=== PATIENT | male | born 1975 | race Caucasian/White ===

== ENCOUNTER 2022-04-29 15:44 | Outpatient (CLI) | payer OTHER, SELFPAY ==
[2022-04-29 21:53] LABS: Uric Acid* 7.7 mg/dL (2.2-8.4)
== END 2022-04-29 15:45 | disposition home or self-care (01) ==
LOC: LKVREF 15:45
PROVIDERS: PCP Family Medicine; Visit Provider Family Medicine
DX: I10 Essential (primary) hypertension (principal); M10.9 Gout, unspecified
CPT/HCPCS: 84550

== ENCOUNTER 2022-05-10 13:51 | Outpatient (CLI) | payer OTHER, SELFPAY ==
[2022-05-10 14:48] VITALS: BP 150/84; PULSE 114; RESP 18
--- NOTE | 2022-05-10 16:53 | PM.ST ---
Stress Test Note Date Date of test: 05/10/22 Providers Primary care provider: Bhargav Garvey Stress test physician: Carlos Ortiz Stress Test Note Stress test ordered: Stress Echo Indication for test: Chest pain Results discussion: Patient is of 46-year-old gentleman who presents for the above test after discussion the risks benefits and side effects he would like to proceed pretest EKG shows normal sinus rhythm, with a heart rate of 98, blood pressure 136 and 86. Review of this stress test, afterward showed no evidence of ischemia, he followed Shakir protocol fully, and this was terminated because of fulfillment of protocol. There is no dysrhythmias. No pain in the recovery phase. Impression: Negative electrographic portion of stress echo Follow up suggested: Await echo images clinical correlation with these will be needed, patient left this testing facility in good condition.
== END 2022-05-10 13:52 | disposition home or self-care (01) ==
LOC: STRESS 13:51
PROVIDERS: PCP Family Medicine; Visit Provider Family Medicine
DX: I10 Essential (primary) hypertension (principal); R07.9 Chest pain, unspecified
CPT/HCPCS: 93016; 93325; 93351

== ENCOUNTER 2023-05-28 11:58 | Outpatient (REF) | payer OTHER, SELFPAY | END 2023-05-28 11:59 | disposition home or self-care (01) | LOC: NFLDREF 11:58 | PROVIDERS: PCP Family Medicine; Referring Provider Family Medicine; Visit Provider Family Medicine | DX: I10 Essential (primary) hypertension (principal); M10.9 Gout, unspecified; Z13.1 Encounter for screening for diabetes mellitus; Z13.220 Encounter for screening for lipoid disorders | CPT/HCPCS: 80048; 80061; 84550 ==

== ENCOUNTER 2023-07-24 15:51 | Emergency (ER) | payer OTHER, SELFPAY ==
[2023-07-24 16:24] VITALS: BP 155/101; PULSE 95; RESP 18; TEMP 36.7; O2SAT 95; BMI 37.3
--- NOTE | 2023-07-24 18:28 | CRLHL7_ITS ---
For Patients: As a result of the Century Cures Act, medical imaging exams and procedure reports are released immediately into your electronic medical record. You may view this report before your referring provider. If you have questions, please contact your health care provider. INDICATION: Left abdominal pain and bulge. TECHNIQUE: Multiplanar CT examination of the abdomen and pelvis were acquired after the administration of 128 mL Isovue 370 intravenously. COMPARISON: None. FINDINGS: Lower chest: Unremarkable. Liver: Normal. Gallbladder: Normal. Biliary: No biliary ductal dilitation. Pancreas: Normal. Spleen: Normal. Adrenal Glands: Normal. Kidneys: Normal size and symmetrically enhancing. No obstructive calculi or hydronephrosis. Ureters: Unremarkable. Bladder: Unremarkable. Bowel: No obstruction or bowel wall thickening. The appendix is normal. Mild colonic diverticulosis without pericolonic fat stranding to suggest acute diverticulitis. Moderate colonic stool burden, correlate for constipation. Pelvic organs: Unremarkable. Peritoneum: No free fluid or pneumoperitoneum. Vessels: Normal. Portal vein remains patent. No significant atherosclerotic disease. Lymph Nodes: No lymphadenopathy. Abdominal Wall/Soft Tissues: Unremarkable. No abdominal hernia identified. Bones: Unremarkable. IMPRESSION: 1. No abdominal hernia is identified. 2. No acute abdominopelvic pathology the etiology of the patient`s symptoms is not elucidated on this examination. Please note that all CT scans at this facility use dose modulation, iterative reconstruction, and/or weight-based dosing when appropriate to reduce radiation dose to as low as reasonably achievable. Dictated by Rusty Garcia MD @ 07/24/2023 7:37:32 PM (Electronically Signed)
--- NOTE | 2023-07-24 18:45 | ED.GENADULT ---
HPI - General Adult General Chief complaint: Abdominal Pain Stated complaint: lower abdominal pain, dizzy Time Seen by Provider: 07/24/23 17:56 History of Present Illness HPI narrative: this 47-year-old male comes in reporting intermittent pain in his left abdomen and a sense that there is a bulge on the left side that is more prominent when upright. He states that the pain is not happening currently. He had a recent visit with his primary physician and was started on antihypertensive medicines. He states that at times he feels lightheaded. He arrives here with normal vital signs. Related Data Previous Rx's Medication Instructions Recorded amlodipine 5 mg tablet 5 mg PO QDAY #90 tabs 07/10/23 aspirin 81 mg tablet,delayed 81 mg PO QDAY #90 tabs 07/10/23 release losartan 100 mg tablet 100 mg PO DAILY #90 tabs 07/10/23 omeprazole 40 mg capsule,delayed 40 mg PO QDAY #90 caps 07/10/23 release prednisone 20 mg tablet 20 mg PO BID PRN gout #10 tabs 07/10/23 rosuvastatin 10 mg tablet 10 mg PO DAILY #90 tabs 07/10/23 spironolactone 50 mg tablet 50 mg PO QAM #30 tabs 07/10/23 ketorolac 10 mg tablet 10 mg PO Q8H 5 days #15 tabs 07/24/23 Allergies Allergy/AdvReac Type Severity Reaction Status Date / Time No Known Allergies Allergy Unknown Unknown Verified 07/24/23 16:33 Review of Systems Status of ROS: Reports: 10 or more systems reviewed and unremarkable except as noted in History and below Narrative: Constitutional: No fevers, no weight gain or loss. Eyes: No discharge. No vision changes. HENT: No congestion, no sore throat, no ear pain. Cardiovascular: No chest pain, no palpitations. Respiratory: No shortness of breath, no wheezes, no cough. Gastrointestinal: No vomiting, no diarrhea. Intermittent left-sided abdominal pain. A bulge on the left side of the abdomen that is present when upright. Genitourinary: No dysuria, no hematuria. Musculoskeletal: Normal range of motion. Skin: No rashes, no pruritis. Neurological: No dizziness, weakness, sensory change, speech change. Endo/Heme/Allergies: No bruising or bleeding. No polydipsia. Pysch: no suicidality, no anxiety, no insomnia. All other systems reviewed and are negative. [facility] Medical History (Updated 07/24/23 @ 20:09 by Lazaro King MD) Achilles tendinitis ?M76.60 - Achilles tendinitis, unspecified leg (ICD-10) Encounter for follow-up ?Z09 - Encounter for follow-up examination after completed treatment for conditions other than malignant neoplasm (ICD-10) GERD (gastroesophageal reflux disease) ?K21.9 - Gastro-esophageal reflux disease without esophagitis (ICD-10) Surgical History (Updated 04/28/22 @ 10:02 by Tanna Mcelroy ~ PSR) History of rhinoplasty ?Z98.890 - Other specified postprocedural states (ICD-10) Family History (Updated 04/28/22 @ 10:06 by Tanna Mcelroy ~ PSR) Uncle Colorectal cancer Father Coronary artery disease High blood pressure Hyperlipidemia Paternal Grandfather Coronary artery disease Maternal Grandfather Crohn disease Social History (Updated 04/28/22 @ 10:07 by Tanna Mcelroy ~ PSR) Narrative: Alcohol ingestion of more than 4 drinks per week Non smoker Does Not use illicit drugs Smoking Status: Never smoker Do you use any of these nicotine containing products: None Second hand tobacco smoke exposure: No How often do you have a drink containing alcohol: 4 or more times a week How many standard drinks containing alcohol do you have on a typical day: 3 or 4 AUDIT-C Alcohol total score: 5 Non-prescribed substance use: denies use Exam Narrative: Exam Narrative: Constitutional: Well-developed, well-nourished, no acute distress. HEENT: Normocephalic, atraumatic. Neck: Normal range of motion. Nontender. Supple. Heart: Regular. No murmurs. Normal rate. Intact distal pulses. Lungs: Clear to auscultation. No chest discomfort. No wheezes, rhonchi, or rales. Abdomen: Normal bowel sounds. Nontender. No rebound tenderness. No pain when palpating deeply into the abdomen. When upright there does appear to be asymmetry with a non well-defined prominence of the left side of the abdomen. No flank pain. Genitalia: Deferred. Back: No midline tenderness. Normal range of motion. Extremities: Normal range of motion. No injury. Skin: Intact. No rash. Warm. No erythema or pallor. Neurologic: No altered sensation. No weakness. Alert and oriented. Psychiatric: No suicidality. No anxiety or depression. No insomnia. Nursing notes and vitals signs are reviewed. Const: Vital Signs, click to edit/add: Vital Signs - 24 hr 07/24/23 16:24 07/24/23 19:23 Temperature 98.1 F Pulse Rate [Pulse Oximeter] 95 86 Respiratory Rate 18 18 Blood Pressure [Ri ght Upper Arm] 155/101 H 146/86 H Pulse Oximetry 95 96 Oxygen Delivery Me thod Room Air Room Air Course Vital Signs Vital signs: Initial Vital Signs Temperature 98.1 F 07/24/23 16:24 Temperature Source Temporal Artery Scan 07/24/23 16:24 Pulse Rate 95 07/24/23 16:24 Respiratory Rate 18 07/24/23 16:24 Blood Pressure 155/101 H 07/24/23 16:24 Blood Pressure Mean 119 H 07/24/23 16:24 Blood Pressure Position Sitting 07/24/23 16:24 Pulse Oximetry 95 07/24/23 16:24 Oxygen Delivery Method Room Air 07/24/23 16:24 Vital Signs Temperature 98.1 F 07/24/23 16:24 Pulse Rate 95 07/24/23 16:24 Respiratory Rate 18 07/24/23 16:24 Blood Pressure 155/101 H 07/24/23 16:24 Pulse Oximetry 95 07/24/23 16:24 Oxygen Delivery Method Room Air 07/24/23 16:24 Temperature 98.1 F 07/24/23 16:24 Pulse Rate 86 07/24/23 19:23 Respiratory Rate 18 07/24/23 19:23 Blood Pressure 146/86 H 07/24/23 19:23 Pulse Oximetry 96 07/24/23 19:23 Oxygen Delivery Method Room Air 07/24/23 19:23 Medical Decision Making MDM Narrative Medical decision making narrative: This patient comes in with intermittent pain in his left side of his abdomen and now noticing a bulge there. He does not have any sign of palpable defect or herniation in this area. I do not notice any bulging on the left side when he is laying down but when standing up there is more prominence on the left side of his abdomen. He does have a large abdomen because of obesity. CT imaging of his abdomen and pelvis is obtained and shows no acute findings and no sign of herniation. Additionally lab results returned with reassuring findings also. He is okay to be discharged home. I did recommend using an abdominal binder. A prescription for Toradol as also provided. Lab Data Labs: Lab Results 07/24/23 Range/Units 18:39 WBC 8.22 (4.50-11.00) K/uL RBC 5.44 (4.30-5.90) m/uL Hgb 16.1 (13.5-17.5) gm/dL Hct 48.1 (37.0-53.0) % MCV 88 (80-100) fL MCH 30 (26-34) pg MCHC 34 (32-36) gm/dL RDW Coeff of Cristina 13.3 (11.5-15.5) % Plt Count 185 (140-440) K/uL Neut % (Auto) 62.6 (42.0-72.0) % Lymph % (Auto) 27.0 (20-44) % Chaves % (Auto) 8.0 (0.0-11.0) % Eos % (Auto) 1.5 (0.0-7.0) % Baso % (Auto) 0.4 (0.0-3.0) % Neut # (Auto) 5.15 (1.7-7.0) K/uL Lymph # (Auto) 2.22 (0.90-2.90) K/uL Chaves # (Auto) 0.70 (0.00-0.90) K/UL Eos # (Auto) 0.12 (0.00-0.50) K/uL Baso # (Auto) 0.03 (0.00-0.30) K/uL Abs Immat Gran (auto) 0.04 (0.00-0.30) K/uL Imm/Tot Granulo (auto) 0.5 % Sodium 140 (135-149) mmol/L Potassium 4.0 (3.6-5.1) mmol/L Chloride 107 (96-114) mmol/L Carbon Dioxide 18 L (20-32) mmol/L Anion Gap 15 (7-15) mEq/L BUN 14 (5-24) mg/dL Creatinine 1.0 (0.5-1.5) mg/dL Estimated Creat Clear 96.32 Estimated GFR 95 ml/min Glucose 97 (60-115) mg/dL Calcium 8.8 (8.4-10.6) mg/dL Imaging Data CT scan - abdomen: Radiologist's impression: 1. No abdominal hernia is identified. 2. No acute abdominopelvic pathology the etiology of the patient`s symptoms is not elucidated on this examination. Discharge Plan Discharge Clinical Impression: Abdominal pain Patient Disposition: Home, Self-Care Condition: Stable Additional Instructions: Use Toradol as needed and directed for pain and inflammatory benefit. Wear abdominal binder if helpful. Follow up with MD or return if worsening. Prescriptions: New ketorolac 10 mg tablet 10 mg PO Q8H 5 Days Qty: 15 0RF No Action losartan 100 mg tablet 100 mg PO DAILY Qty: 90 1RF amlodipine 5 mg tablet 5 mg PO QDAY Qty: 90 4RF spironolactone 50 mg tablet 50 mg PO QAM Qty: 30 2RF omeprazole 40 mg capsule,delayed release(DR/EC) 40 mg PO QDAY Qty: 90 0RF prednisone 20 mg tablet 20 mg PO BID PRN (Reason: gout) Qty: 10 2RF rosuvastatin 10 mg tablet 10 mg PO DAILY Qty: 90 0RF aspirin 81 mg tablet,delayed release (DR/EC) 81 mg PO QDAY Qty: 90 4RF Follow Up/Referrals: Bhargav Garvey MD [Primary Care Provider] - Stand Alone Forms: [employer] Info Instructions
[2023-07-24 18:54] LABS: Basophils Absolute Auto 0.03 K/uL (0.00-0.30); Basophils Percent Auto 0.4 % (0.0-3.0); Eosinophils Absolute Auto 0.12 K/uL (0.00-0.50); Eosinophils Percent Auto 1.5 % (0.0-7.0); Hematocrit 48.1 % (37.0-53.0); Hemoglobin* 16.1 gm/dL (13.5-17.5); Immature Granulocytes Abs Auto 0.04 K/uL (0.00-0.30); Immature Granulocytes Pct Auto 0.5 %; Lymphocytes Absolute Auto 2.22 K/uL (0.90-2.90); Mean Corpuscular HGB Conc 34 gm/dL (32-36); Mean Corpuscular Hemoglobin 30 pg (26-34); Mean Corpuscular Volume 88 fL (80-100); Neutrophils Absolute Auto 5.15 K/uL (1.7-7.0); Neutrophils Percent Auto 62.6 % (42.0-72.0); Platelet Count* 185 K/uL (140-440); RDW Coefficient of Variation % 13.3 % (11.5-15.5); Red Blood Count 5.44 m/uL (4.30-5.90); White Blood Count* 8.22 K/uL (4.50-11.00)
[2023-07-24 19:02] LABS: Slide Review Reflex No
[2023-07-24 19:05] LABS: Chloride* 107 mmol/L (96-114); Sodium* 140 mmol/L (135-149)
[2023-07-24 19:08] LABS: Anion Gap 15 mEq/L (7-15); Carbon Dioxide* 18 mmol/L (20-32); Est. Creatinine Clearance* 96.32; Estimated Glomerular Filt Rate 95 ml/min
[2023-07-24 19:09] LABS: Blood Urea Nitrogen* 14 mg/dL (5-24); Calcium* 8.8 mg/dL (8.4-10.6); Glucose* 97 mg/dL (60-115)
[2023-07-24 19:23] VITALS: BP 146/86; PULSE 86; RESP 18; O2SAT 96
== END 2023-07-24 20:20 | disposition home or self-care (01) ==
PROVIDERS: Emergency Provider Emergency Medicine Emergency Medical Services; PCP Family Medicine
DX: R10.9 Unspecified abdominal pain (principal)
CPT/HCPCS: 36415; 74177; 80048; 85025; 99283; 99284; Q9967

== ENCOUNTER 2023-09-04 08:57 | Outpatient (CLI) | payer OTHER, SELFPAY | END 2023-09-04 08:58 | disposition home or self-care (01) | LOC: NFLDREF 09-06 11:21 | PROVIDERS: PCP Family Medicine; Referring Provider Family Medicine; Visit Provider Family Medicine | DX: E78.00 Pure hypercholesterolemia, unspecified (principal); I10 Essential (primary) hypertension; I25.10 Atherosclerotic heart disease of native coronary artery without angina pectoris; Z13.29 Encounter for screening for other suspected endocrine disorder | CPT/HCPCS: 80053; 80061; 84270; 84402; 84403; 84443 ==

== ENCOUNTER 2024-11-18 18:25 | Outpatient (CLI) | payer OTHER, SELFPAY | END 2024-11-18 18:26 | disposition home or self-care (01) | LOC: LKVREF 18:35 | PROVIDERS: PCP Family Medicine; Visit Provider Family Medicine | DX: I10 Essential (primary) hypertension (principal); I25.10 Atherosclerotic heart disease of native coronary artery without angina pectoris | CPT/HCPCS: 80053 ==

== ENCOUNTER 2024-12-19 08:36 | Outpatient (CLI) | payer OTHER, SELFPAY ==
--- NOTE | 2024-12-19 09:49 | P.ANES_ITS ---
Anesthesia Charges Start Date/Time Anesthesia Start Date: 12/19/24 Anesthesia Start Time: 09:30 Stop Date/Time Anesthesia Stop Date: 12/19/24 Anesthesia Stop Time: 09:48 Coding CPT Codes CPT Codes: ANES LWR INTST SCR COLSC - 23922 ([id number]) P3 - PATIENT W/SEVERE SYS DISEASE, QX - CAPACITY MANAGEMENT SPECIALIST SVC W/ MD MED DIRECTION, QK - CONSULTING PROPERTY MANAGER 2-4 CNCRNT ANES PROC
--- NOTE | 2024-12-19 09:49 | W.ANESCHARGE ---
Anesthesia Charges Start Date/Time Anesthesia Start Date: 12/19/24 Anesthesia Start Time: 09:30 Stop Date/Time Anesthesia Stop Date: 12/19/24 Anesthesia Stop Time: 09:48 Coding CPT Codes CPT Codes: ANES LWR INTST SCR COLSC - 04663 ([id number]) P3 - PATIENT W/SEVERE SYS DISEASE, QX - MACHINIST BENCH SVC W/ MD MED DIRECTION, QK - COOK COLD MEAT 2-4 CNCRNT ANES PROC
--- NOTE | 2024-12-19 09:59 | P.ANES_ITS ---
Anesthesia Charges Start Date/Time Anesthesia Start Date: 12/19/24 Anesthesia Start Time: 09:30 Stop Date/Time Anesthesia Stop Date: 12/19/24 Anesthesia Stop Time: 09:48 Coding CPT Codes CPT Codes: ANES LWR INTST SCR COLSC - 11150 ([id number]) QK - LABOR GANG SUPERVISOR 2-4 CNCRNT ANES PROC, QX - FIELD AUTO APPRAISER SVC W/ MED DIRECTION, P3 - PATIENT W/SEVERE SYS DISEASE
--- NOTE | 2024-12-19 09:59 | W.ANESCHARGE ---
Anesthesia Charges Start Date/Time Anesthesia Start Date: 12/19/24 Anesthesia Start Time: 09:30 Stop Date/Time Anesthesia Stop Date: 12/19/24 Anesthesia Stop Time: 09:48 Coding CPT Codes CPT Codes: ANES LWR INTST SCR COLSC - 78661 ([id number]) QK - INCIDENT RESPONSE LEAD 2-4 CNCRNT ANES PROC, QX - PERSONNEL PSYCHOLOGIST SVC W/ MED DIRECTION, P3 - PATIENT W/SEVERE SYS DISEASE
== END 2024-12-19 08:37 | disposition home or self-care (01) ==
LOC: OP CLINIC 08:36
PROVIDERS: PCP Family Medicine; Visit Provider Surgery
DX: Z12.11 Encounter for screening for malignant neoplasm of colon (principal)
CPT/HCPCS: 00812; 45378; J2704

== ENCOUNTER 2025-02-18 08:03 | Outpatient (CLI) | payer OTHER, SELFPAY | END 2025-02-18 08:04 | disposition home or self-care (01) | LOC: NFLDREF 15:10 | PROVIDERS: PCP Family Medicine; Referring Provider Family Medicine; Visit Provider Family Medicine | DX: E78.5 Hyperlipidemia, unspecified (principal) | CPT/HCPCS: 80053; 80061 ==